=== PATIENT | female | born 1990 | race Native Hawaiian/Other Pacific Islander ===

== ENCOUNTER 2019-05-17 14:28 | Emergency (ER) | payer OTHER ==
[~2019-05-17] VITALS: Ht 157.5 cm; Wt 68.9 kg
[~2019-05-17 14:28] MED LIST: PRENATAL1 T10 PO
[2019-05-17 15:10] VITALS: TEMP 98.4
[2019-05-17 16:44] LABS: PLATELET COUNT 322 K/uL (152-353)
[2019-05-17 18:45] VITALS: BP 111/63
== END 2019-05-17 18:54 | disposition home or self-care (01) ==
LOC: ED 14:28
PROVIDERS: Hospitalist
DX: R19.7 Diarrhea, unspecified (principal); R11.2 Nausea with vomiting, unspecified; E87.6 Hypokalemia
CPT/HCPCS: 36415; 80053; 81000; 81025; 82150; 83690; 85027; 96360; 96375; 99284; J2405

== ENCOUNTER 2019-09-23 11:15 | Outpatient (CLI) | payer OTHER | END 2019-09-23 11:19 | disposition short-term general hospital (02) | LOC: AMB 11:15 | DX: R55 Syncope and collapse (principal) | CPT/HCPCS: A0425; A0427 ==

== ENCOUNTER 2019-09-23 11:20 | Emergency (ER) | payer OTHER ==
[~2019-09-23] VITALS: Ht 157.5 cm; Wt 61.2 kg
[2019-09-23 11:20] VITALS: TEMP 97.7
[2019-09-23 11:50] LABS: PLATELET COUNT 297 K/uL (152-353)
[2019-09-23 12:10] LABS: POTASSIUM 3.6 mmol/L (3.6-5.2)
[2019-09-23 16:09] VITALS: BP 100/50
== END 2019-09-23 16:09 | disposition home or self-care (01) ==
LOC: ED 11:22
PROVIDERS: Emergency Medicine
DX: R55 Syncope and collapse (principal)
CPT/HCPCS: 80053; 80307; 81000; 81025; 85027; 87088; 93005; 96360; 99284

== ENCOUNTER 2021-11-11 19:22 | Emergency (ER) | payer OTHER ==
[~2021-11-11] VITALS: Ht 157.5 cm; Wt 63.5 kg
[2021-11-11 19:59] LABS: PLATELET COUNT 275 K/uL (152-353)
[2021-11-11 20:00] LABS: POTASSIUM 3.3 mmol/L (3.6-5.2)
[2021-11-11 20:25] VITALS: BP 116/73; TEMP 98.7
== END 2021-11-11 20:25 | disposition home or self-care (01) ==
LOC: ED 19:22
PROVIDERS: Emergency Medicine
DX: K52.89 Other specified noninfective gastroenteritis and colitis (principal); E87.6 Hypokalemia; R51.9 Headache, unspecified
CPT/HCPCS: 36415; 80048; 85027; 96372; 99283; J1885

== ENCOUNTER 2021-11-26 10:02 | Emergency (ER) | payer OTHER ==
[~2021-11-26] VITALS: Ht 157.5 cm; Wt 68.9 kg
[2021-11-26 10:07] VITALS: TEMP 98.5
[2021-11-26 12:08] VITALS: BP 111/67
== END 2021-11-26 12:10 | disposition home or self-care (01) ==
LOC: ED 10:02
DX: S63.696A Other sprain of right little finger, initial encounter (principal); W23.0XXA Caught, crushed, jammed, or pinched between moving objects, initial encounter; Y92.89 Other specified places as the place of occurrence of the external cause
CPT/HCPCS: 96372; 99283; J1885

== ENCOUNTER 2021-12-30 19:04 | Emergency (ER) | payer OTHER ==
[~2021-12-30] VITALS: Ht 157.5 cm; Wt 60.3 kg
[2021-12-30 19:53] VITALS: BP 113/54; TEMP 100.8
== END 2021-12-30 19:53 | disposition home or self-care (01) ==
LOC: ED 19:04
DX: R50.9 Fever, unspecified (principal)
CPT/HCPCS: 96372; 99282; J1885